=== PATIENT | female | born 1940 | race Two or more races ===

== ENCOUNTER 2016-09-03 12:36 | Emergency (ER) | payer OTHER ==
[~2016-09-03] VITALS: Ht 152.4 cm; Wt 53.1 kg
--- NOTE | 2016-09-03 12:36 | NUR ---
pt ambulatory to er bed 07 accopanied by daughter. c/o epigatric pain that started yesterday. today started c/o n/v. no diarrhea. gowned and placed on monitor. nad noted. awaiting md quevedo.
--- NOTE | 2016-09-03 13:04 | NUR ---
dr darden at bedside for eval.
--- NOTE | 2016-09-03 13:20 | NUR ---
iv line started blood drawn and sent to lab.
[2016-09-03] MEDS ORDERED: ONDANSETRON HCL/PF 4 MG/2 ML VIAL ONE (13:23)
[2016-09-03 13:24] LABS: BASOPHILS % (AUTO) 0.5 % (0.0-2.0); EOSINOPHILS # (AUTO) 0.1 /CMM (0.0-0.7); EOSINOPHILS % (AUTO) 0.7 % (0.0-6.0); HEMATOCRIT 39 % (33-45); HEMOGLOBIN 13.4 g/dL (11.5-14.8); LYMPHOCYTES # (AUTO) 1.1 /CMM (0.8-4.8); MEAN CORPUSCULAR HEMOGLOBIN 30 PG (26.0-33.0); MEAN CORPUSCULAR HGB CONC 34 g/dl (31.0-36.0); MEAN CORPUSCULAR VOLUME 87 fL (82-100); MONOCYTES # (AUTO) 0.4 /CMM (0.1-1.30); MONOCYTES % (AUTO) 4.6 % (2.0-12.0); NEUTROPHILS # (AUTO) 6.3 /CMM (1.8-8.9); NEUTROPHILS % (AUTO) 80.2 % (43.0-81.0); PLATELET COUNT (AUTO) 194 /CMM (150-450); RDW COEFFICIENT OF VARIATION 12.6 (11.5-15.0); RED BLOOD CELL COUNT(AUTO) 4.51 MIL/uL (4.0-5.2); WHITE BLOOD COUNT (AUTO) 7.9 K/uL (4.3-11.0)
[2016-09-03 13:30] LABS: APPEARANCE,URINE Cloudy (CLEAR); BILIRUBIN,URINE Negative (NEGATIVE); BLOOD, URINE Trace-intact Ery/uL (NEGATIVE); COLOR,URINE Yellow (YELLOW); KETONES,URINE 15 (NEGATIVE); LEUKOCYTE ESTERASE ,URINE Negative (NEGATIVE); NITRITE, URINE Negative (NEGATIVE); PH,URINE 7.5 (5.0-8.0); PROTEIN,URINE 100 mg/dl (NEGATIVE); UGLUCOSE Negative (NEGATIVE); UROBILINOGEN,URINE 0.2 EU/dL (0.2)
[2016-09-03] MEDS ORDERED: ONDANSETRON HCL/PF 4 MG/2 ML VIAL IVP ONE (13:30)
--- NOTE | 2016-09-03 13:32 | NUR ---
pt to radiology for abdominal ct scan via [facility].
[2016-09-03 13:37] LABS: ADD URINE CULTURE NO; BACTERIA,URINE Few /HPF (None Seen); SQUAMOUS EPITHELIAL CELL,UR Few /HPF (None Seen); WBC,URINE 0-2 /HPF (0-3)
[2016-09-03 13:51] LABS: CALCIUM, SERUM 9.3 mg/dL (8.5-10.1); CARBON DIOXIDE 31 mmol/L (21-32); CHLORIDE 103 mmol/L (98-107); CREATININE 0.6 mg/dL (0.6-1.3); GLUCOSE 140 mg/dL (74-106); POTASSIUM 4.4 mmol/L (3.5-5.1); SODIUM SERUM 140 mmol/L (136-145); UREA NITROGEN, BLOOD 10 mg/dL (7-18)
[2016-09-03 13:56] LABS: LACTIC ACID 1.3 mmol/L (0.4-2.0)
[2016-09-03 13:58] LABS: TROPONIN I < 0.017 ng/mL (0.00-0.056)
[2016-09-03 14:07] LABS: ALANINE AMINOTRANSFERASE 29 U/L (12-78); ALBUMIN 3.8 g/dL (3.4-5.0); ALKALINE PHOSPHATASE 96 U/L (46-116); ASPARTATE AMINOTRANSFERASE 19 U/L (15-37); BILIRUBIN,DIRECT 0.1 mg/dL (0.0-0.2); BILIRUBIN,TOTAL 0.5 mg/dL (0.2-1.0); LIPASE 116 U/L (73-393); TOTAL PROTEIN, SERUM 7.8 g/dL (6.4-8.2)
--- NOTE | 2016-09-03 14:30 | NUR ---
Patient discharged to home in stable condition. Written and verbal after care instructions given. Patient verbalizes understanding of instruction.IV removed. Catheter intact and site benign. Pressure and 4x4 applied to site. No bleeding noted.
[2016-09-03 14:31] VITALS: BP 142/77
== END 2016-09-03 14:32 | disposition home or self-care (01) ==
LOC: ER 12:40
DX: R10.13 Epigastric pain (principal); I10 Essential (primary) hypertension; Z90.49 Acquired absence of other specified parts of digestive tract
CPT/HCPCS: 36415; 71010; 74176; 80048; 80076; 81001; 83605; 83690; 84484; 85025; 93005; 96374; 99285; A4606; J2405; Z7610; 81000-TC

== ENCOUNTER 2016-09-05 00:03 | Emergency (ER) | payer OTHER ==
[~2016-09-05] VITALS: Ht 144.8 cm; Wt 52.2 kg
[2016-09-05 00:20] VITALS: BP 158/78
[2016-09-05] MEDS ORDERED: ONDANSETRON 4 MG TAB.RAPDIS ONE (00:34)
[2016-09-05] MEDS ORDERED: IBUPROFEN 400 MG TABLET ONE (00:34)
[2016-09-05] MEDS: IBUPROFEN 400 MG TABLET PO ONE (00:40)
[2016-09-05] MEDS: ONDANSETRON 4 MG TAB.RAPDIS PO ONE (00:40)
== END 2016-09-05 02:04 | disposition home or self-care (01) ==
LOC: ER 00:07
DX: M54.42 Lumbago with sciatica, left side (principal); I10 Essential (primary) hypertension; K29.70 Gastritis, unspecified, without bleeding
CPT/HCPCS: 72131; 99284; A4606; Q0162; Z7610